=== PATIENT | female | born 1980 | race Native Hawaiian/Other Pacific Islander ===

== ENCOUNTER 2018-02-04 14:06 | Emergency (ER) | payer OTHER ==
[2018-02-04 14:14] VITALS: RESP 18
[2018-02-04] MEDS ORDERED: Sodium Chloride 0.9% 1,000 ML IV ONE ×2 (16:32→18:08)
--- NOTE | 2018-02-04 16:46 | C.PDOC ---
History Of Present Illness 37yo female, with history of heavy menses and normally taking iron supplements, stopped for a few weeks as she has been taking a PPI, comes to ER for evaluation as her menses this month has lasted 2 weeks. She states she has been using 5 pads when she normally uses 3 per day. Also for the last 2 days, she has been feeling lightheaded, dizzy, short of breath with exertion, and generalized weakness. She denies any fever, chills, and offers no additional medical complaints. Time Seen by Provider: 02/04/18 15:57 Chief Complaint (Nursing): Dizziness/Lightheaded History Per: Patient History/Exam Limitations: no limitations Onset/Duration Of Symptoms: Days Current Symptoms Are (Timing): Still Present Past Medical History Reviewed: Historical Data, Nursing Documentation, Vital Signs Vital Signs: Last Vital Signs Temp 98.6 F 02/04/18 19:15 Pulse 77 02/04/18 19:15 Resp 18 02/04/18 19:15 BP 128/85 02/04/18 19:15 Pulse Ox 100 02/04/18 19:15 - Medical History PMH: Anemia, Gastritis Surgical History: No Surg Hx Family History: States: No Known Family Hx - Social History Hx Alcohol Use: No Hx Substance Use: No - Immunization History Hx Tetanus Toxoid Vaccination: No Hx Influenza Vaccination: No Hx Pneumococcal Vaccination: No Review Of Systems Constitutional: Positive for: Weakness. Negative for: Fever, Chills Cardiovascular: Positive for: Light Headedness Respiratory: Positive for: SOB with Excertion Genitourinary: Positive for: Vaginal Bleeding (heavy menses x 2 weeks) Neurological: Positive for: Dizziness Physical Exam - Physical Exam Appears: Non-toxic, No Acute Distress Skin: Warm, Dry Head: Atraumatic, Normacephalic Eye(s): bilateral: PERRL, EOMI, Conjunctiva Pale (mild) Oral Mucosa: Moist Neck: Normal ROM, Supple Chest: Symmetrical Cardiovascular: Rhythm Regular Respiratory: Normal Breath Sounds, No Decreased Breath Sounds, No Wheezing Gastrointestinal/Abdominal: Soft, No Tenderness, No Distention, No Guarding, No Rebound Back: Normal Inspection, No CVA Tenderness Extremity: Normal ROM, No Swelling Neurological/Psych: Oriented x3, Normal Speech, Normal Cognition ED Course And Treatment - Laboratory Results Result Diagrams: 02/04/18 16:55 02/04/18 16:55 O2 Sat by Pulse Oximetry: 99 (RA) Pulse Ox Interpretation: Normal Medical Decision Making Medical Decision Making: Plan: -- Labs -- Urinalysis -- IV Fluids 1845 pt feeling much better. able to walk around ed with no difficulty. not orthostatic, minimally anemic; last hgb 11 per pt, and on iron. p stable for discharge and f/u cooker meal Disposition Counseled Patient/Family Regarding: Studies Performed, Diagnosis, Need For Followup - Disposition Referrals: Milo Rajan MD [Staff Provider] - Disposition: HOME/ ROUTINE Disposition Time: 18:56 Condition: IMPROVED Additional Instructions: Please stay well hydrated. Drink at least 6-8 glasses of water per day. 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 Return to ER for nay worsening symptoms. 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 - Scribe Statement Sarah Roman Provider Attestation: All medical record entries made by the Scribe were at my direction and personally dictated by me. I have reviewed the chart and agree that the record accurately reflects my personal performance of the history, physical exam, medical decision making, and the department course for this patient. I have also personally directed, reviewed, and agree with the discharge instructions and disposition.
[2018-02-04 17:02] LABS: BASO # 0.1 K/uL (0.0-0.2); BASO % 0.8 % (0.0-2.0); EOS # 0.1 K/uL (0.0-0.7); EOS % 0.8 % (0.0-4.0); HEMOGLOBIN 10.9 g/dL (11.0-16.0); LYMPH # 2.2 K/uL (1.0-4.3); LYMPH % 27.2 % (20.0-40.0); MEAN CORPUSCULAR HEMOGLOBIN 25.5 pg (27.0-31.0); MEAN CORPUSCULAR HGB CONC 33.5 g/dL (33.0-37.0); MEAN PLATELET VOLUME 8.3 fL (7.2-11.7); MONO # 0.6 K/uL (0.0-0.8); NEUT # 5.3 K/uL (1.8-7.0); NEUT % 64.2 % (50.0-75.0); NRBC % 0.2 % (0.0-2.0); RBC 4.27 Mil/uL (3.80-5.20); RED CELL DISTRIBUTION WIDTH 18.8 % (11.5-14.5); WHITE BLOOD COUNT 8.3 K/uL (4.8-10.8)
[2018-02-04 17:17] LABS: ALB/GLOB RATIO 1.3 (1.0-2.1); ALBUMIN 4.6 g/dL (3.5-5.0); ALT/SGPT 87 U/L (9-52); AST/SGOT 35 U/L (14-36); BLOOD UREA NITROGEN 9 mg/dL (7-17); CALCIUM 9.5 mg/dl (8.6-10.4); GFR AFRICAN-AMERICAN > 60; GFR NON-AFRICAN AMERICAN > 60
[2018-02-04 17:39] LABS: URINE BACTERIA OCC (<OCC); URINE BILIRUBIN NEGATIVE (NEGATIVE); URINE CLARITY Hazy (Clear); URINE COLOR Red (YELLOW); URINE GLUCOSE (UA) 1+ mg/dL (Normal); URINE LEUKOCYTE ESTERASE 1+ Leu/uL (Negative); URINE PROTEIN 2+ mg/dL (NEGATIVE); URINE UROBILINOGEN NORMAL mg/dL (0.2-1.0)
[2018-02-04 17:44] LABS: URINE BLOOD 3+ (NEGATIVE)
[2018-02-04 19:16] VITALS: BP 128/85; PULSE 77; TEMP 98.6
[2018-02-05 19:28] VITALS: O2SAT 99
== END 2018-02-04 19:15 | disposition home or self-care (01) ==
LOC: C.ER 14:06
DX: N93.8 Other specified abnormal uterine and vaginal bleeding (principal)